=== PATIENT | male | born 1945 | race Caucasian/White ===

== ENCOUNTER 2018-07-30 12:30 | Inpatient (IN) | payer OTHER ==
[~2018-07-30] VITALS: Ht 167.6 cm; Wt 81.0 kg
[2018-07-30 13:33] LABS: APPEARANCE,URINE Clear (CLEAR); BILIRUBIN,URINE Negative (NEGATIVE); COLOR,URINE Yellow (YELLOW); GLUCOSE, URINE (UA) Negative (NEGATIVE); KETONES,URINE Negative (NEGATIVE); LEUKOCYTE ESTERASE ,URINE Negative (NEGATIVE); NITRATE,URINE Negative (NEGATIVE); OCCULT BLOOD,URINE Negative (NEGATIVE); PH,URINE 5.5 (5.0-8.0); PROTEIN,URINE Trace (NEGATIVE)
[2018-07-30 13:40] LABS: BASOPHILS % (AUTO) 0.4 % (0.0-5.0); EOSINOPHILS % (AUTO) 0.1 % (0.0-8.0); HEMATOCRIT 49.1 % (42-54); LYMPHOCYTES % (AUTO) 2.7 % (21.0-51.0); MEAN CORPUSCULAR HEMOGLOBIN 31.6 pg (27.0-33.0); MEAN CORPUSCULAR HGB CONC 33.8 g/dL (32.0-36.0); MEAN CORPUSCULAR VOLUME 93.6 fL (79-99); MONOCYTES % (AUTO) 4.4 % (3.0-13.0); NEUTROPHILS % (AUTO) 92.4 % (40.0-77.0); PLATELET COUNT (AUTO) 271 K/uL (130-400); RED BLOOD CELL COUNT(AUTO) 5.24 MIL/uL (4.50-6.20); RED CELL DISTRIBUTION WIDTH 13.8 % (11.0-15.5); WHITE BLOOD COUNT (AUTO) 22.8 K/uL (4.8-10.8)
[2018-07-30 13:46] LABS: BACTERIA,URINE Rare /HPF (None Seen); RBC,URINE 0-1 /HPF (0-1); SQUAMOUS EPITHELIAL CELL,UR Rare /HPF (0-2); WBC,URINE 0-1 /HPF (0-1)
[2018-07-30] MEDS ORDERED: LEVOFLOXACIN 500 MG/D5W 100 ML 100 ML ONE (13:53)
[2018-07-30 13:55] LABS: CARBON DIOXIDE 35 mmol/L (21-32); CHLORIDE 100 mmol/L (101-111); CREATININE 1.2 mg/dL (0.5-1.5); GLOMERULAR FILTR. RATE CALC 63 mL/min (>60); GLUCOSE,RANDOM 102 mg/dL (70-105); POTASSIUM 3.9 mmol/L (3.5-5.1); SODIUM SERUM 141 mmol/L (136-145); UREA NITROGEN, BLOOD 24 mg/dL (7-18)
[2018-07-30] MEDS ORDERED: ACETAMINOPHEN 325 MG TAB ONE (14:05)
[2018-07-30 14:09] LABS: ALANINE AMINOTRANSFERASE 30 U/L (12-78); ALBUMIN 3.7 g/dL (3.5-5.0); ASPARTATE AMINOTRANSFERASE 29 U/L (10-37); BILIRUBIN,TOTAL 0.7 mg/dL (0.2-1.0); CREATINE KINASE, TOTAL 65 U/L (21-232); MYOGLOBIN 95 ng/mL (10-92); TROPONIN I < 0.04 ng/mL (0.00-0.06)
[2018-07-30 14:12] LABS: ABG BASE EXCESS 5.5 mmol/L (-2.0-3.0); ABG HCO3 29.9 mmol/L (21.0-28.0); ABG OXYGEN SATURATION 97.6 % (95.0-99.0); ABG PCO2 43 mmHg (35-48)
[2018-07-30 14:18] LABS: INR 0.91 (0.85-1.15); PARTIAL THROMBOPLASTIN TIME 25.2 SEC (26.3-35.5); PROTHROMBIN TIME 9.6 SEC (9.6-11.6)
[2018-07-30] MEDS ORDERED: IPRATROPIUM/ALBUTEROL SULFATE 3 ML SOLUTION IH ONE (14:59)
[2018-07-30] MEDS ORDERED: CEFTRIAXONE SODIUM 1 GM ONE (15:29)
[2018-07-30] MEDS ORDERED: FUROSEMIDE 10 MG/ML 4ML VIAL ONE (15:29)
[2018-07-30] MEDS ORDERED: HYDRALAZINE HCL 20 MG/ML VIAL IV PRN (16:30)
[2018-07-30] MEDS ORDERED: ACETAMINOPHEN 325 MG TAB PO PRN ×2 (16:30)
[2018-07-30] MEDS: AZITHROMYCIN 500MG+NS 250ML 250 ML IV SCH (16:30)
[2018-07-30] MEDS ORDERED: MORPHINE SULFATE 2 MG/ML 1ML SYG IV PRN (16:30)
[2018-07-30] MEDS ORDERED: ONDANSETRON HCL 4 MG/2 ML VIAL IV PRN (16:30)
[2018-07-30] MEDS ORDERED: SODIUM CHLORIDE 3% FOR INHALATION 4 ML/AMP VIAL.NEB IH ONE (16:55)
[2018-07-30 17:22] LABS: HEMOGLOBIN A1C 5.9 % (4.0-6.0)
[2018-07-30 17:30] LABS: PHOSPHORUS 2.9 mg/dL (2.5-4.9); THYROID STIMULATING HORMONE 2.41 uIU/mL (0.36-3.74)
[2018-07-30] MEDS ORDERED: AZITHROMYCIN 500MG+NS 250ML 250 ML IV ONE (18:47)
[2018-07-30] MEDS: PREDNISONE 10 MG TABLET PO SCH (19:30)
[2018-07-30 19:35] LABS: CREATINE KINASE, TOTAL 72 U/L (21-232); MYOGLOBIN 74 ng/mL (10-92); TROPONIN I < 0.04 ng/mL (0.00-0.06)
[2018-07-30] MEDS ORDERED: FUROSEMIDE 10 MG/ML 2ML VIAL IV SCH (21:00)
[2018-07-30] MEDS: CEFTRIAXONE SODIUM 1 GM IV SCH (21:00)
[2018-07-30] MEDS: TEMAZEPAM 15 MG CAPSULE PO SCH (21:00)
[2018-07-30] MEDS: FAMOTIDINE/PF 20 MG/2 ML VIAL IV SCH (21:00)
[2018-07-30] MEDS ORDERED: PREDNISONE 20 MG TABLET ONE (22:32)
[2018-07-30] MEDS ORDERED: FAMOTIDINE/PF 20 MG/2 ML VIAL IV ONE (22:32)
[2018-07-30] MEDS ORDERED: TEMAZEPAM 15 MG CAPSULE ONE (22:56)
[2018-07-31 01:28] LABS: CREATINE KINASE, TOTAL 53 U/L (21-232); MYOGLOBIN 54 ng/mL (10-92); TROPONIN I < 0.04 ng/mL (0.00-0.06)
[2018-07-31 02:34] VITALS: BP 160/90
[2018-07-31] MEDS ORDERED: CLON0.2T PO (03:21)
[2018-07-31] MEDS ORDERED: FISH1CAP49 PO (03:21)
[2018-07-31] MEDS ORDERED: SIMV20TA6 PO (03:21)
[2018-07-31] MEDS ORDERED: FURO20TA4 PO (03:21)
[2018-07-31] MEDS ORDERED: TIOT18CA3 IH (03:21)
[2018-07-31] MEDS ORDERED: ALPR-409 PO (03:21)
[2018-07-31] MEDS ORDERED: OMEP20CA10 PO (03:21)
[2018-07-31] MEDS ORDERED: BUDE10.2 IH (03:21)
[2018-07-31] MEDS ORDERED: POLY15DR57 OP (03:21)
[2018-07-31] MEDS ORDERED: DILT180T12 PO (03:21)
[2018-07-31] MEDS ORDERED: DEXT1DRO OP (03:21)
[2018-07-31] MEDS ORDERED: ALBU8.5H8 IH (03:21)
[2018-07-31] MEDS ORDERED: ASPI-555 PO (03:21)
[2018-07-31] MEDS ORDERED: FLUT16H NASAL (03:21)
[2018-07-31] MEDS ORDERED: METO25TA6 PO (03:21)
[2018-07-31 04:30] VITALS: BP 127/70
[2018-07-31] MEDS: IPRATROPIUM/ALBUTEROL SULFATE 3 ML SOLUTION IH SCH ×2 (05:37→11:28)
[2018-07-31] MEDS ORDERED: ALPRAZOLAM 0.25 MG TABLET PO PRN (07:00)
[2018-07-31 07:31] VITALS: BP 135/76
[2018-07-31] MEDS: CEFTRIAXONE SODIUM 1 GM IV SCH ×2 (08:06→21:06)
[2018-07-31] MEDS: DILTIAZEM HCL 180 MG CAP.SR.24H PO SCH (08:08)
[2018-07-31] MEDS: FISH OIL 1000 MG/CAP PO SCH (08:08)
[2018-07-31] MEDS: FUROSEMIDE 20 MG TABLET PO SCH ×2 (08:10→21:08)
[2018-07-31] MEDS: PREDNISONE 10 MG TABLET PO SCH (08:10)
[2018-07-31] MEDS: FAMOTIDINE/PF 20 MG/2 ML VIAL IV SCH ×2 (08:10→21:07)
[2018-07-31] MEDS: METOPROLOL TARTRATE 25 MG TAB PO SCH ×2 (08:10→21:08)
[2018-07-31] MEDS: PANTOPRAZOLE SODIUM 40 MG TABLET.DR PO SCH (08:15)
[2018-07-31] MEDS: ENOXAPARIN SODIUM 80 MG/0.8 ML SQ SCH ×2 (08:15→21:07)
[2018-07-31 08:53] LABS: CREATINE KINASE, TOTAL 43 U/L (21-232); MYOGLOBIN 72 ng/mL (10-92); TROPONIN I < 0.04 ng/mL (0.00-0.06)
[2018-07-31] MEDS: ARTIFICAL TEARS SOL 15 ML OP SCH ×4 (09:00→21:00)
[2018-07-31] MEDS ORDERED: POLYVINYL ALCOHOL OP SCH (09:00)
[2018-07-31] MEDS ORDERED: SUB TO IPRATROPIUM 0.5MG/2.5ML PER P&T IH SCH (09:00)
[2018-07-31] MEDS ORDERED: ENOXAPARIN SODIUM 40 MG/0.4 ML SYRINGE SQ SCH (09:00)
[2018-07-31] MEDS ORDERED: SUB PER P&T FOR ASTHMA OR COPD RECOMMENDATION IH SCH (09:00)
[2018-07-31] MEDS: CLONIDINE HCL 0.2 MG TABLET PO SCH ×2 (09:00→21:08)
[2018-07-31] MEDS ORDERED: METOPROLOL TARTRATE 1 MG/ML 5ML VIAL IV PRN (09:30)
--- NOTE | 2018-07-31 09:50 | NUR ---
Patient Afib in 80's and converted to SR 80
[2018-07-31 10:59] VITALS: BP 139/74
[2018-07-31] MEDS: FLUTICASONE PROPIONATE 50MCG/SPRAY 16 GM BOTTLE EN SCH (12:40)
--- NOTE | 2018-07-31 12:50 | NUR ---
Patient Rhythm SR 80's
[2018-07-31 16:08] VITALS: BP 152/81
--- NOTE | 2018-07-31 16:25 | NUR ---
DC Plan Met with patient and at bedside. Patient had questions regarding to cardiology work-up. Informed patient that [place] does not need special approval for work up. Explained admission and UM/UR process. Verbalized understanding. Patient states lives w/ in motor home. Denies any difficulty w/ ADLs. has nebulizer, large O2 concentrator, and portable unit. feels safe returning to home w/ same setting. CD Addendum: 08/01/18 at 0835 by BETHANY PASCAL CM Amended: Links added.
[2018-07-31] MEDS: AZITHROMYCIN 500MG+NS 250ML 250 ML IV SCH (16:33)
--- NOTE | 2018-07-31 18:00 | NUR ---
Patient converted back to AFib 102-130's. Checked on patient and patient standing next to bed. Redirected patient back to bed.
[2018-07-31] MEDS ORDERED: FUROSEMIDE 10 MG/ML 2ML VIAL IV ONE (18:15)
[2018-07-31] MEDS: IPRATROPIUM 0.5 MG/2.5 ML INH IH SCH (19:24)
[2018-07-31 19:45] VITALS: BP 143/76
[2018-07-31] MEDS: BUDESONIDE 0.5 MG/2 ML INH IH SCH (19:51)
--- NOTE | 2018-07-31 20:00 | NUR ---
PM assessment. Bedside report received from TICO Hawthorne. Plan of care discussed with patient. Patient remains Sinus tachy in the 100's patient current denies any problems resting comfortably in room. Physical assessment -see patients chart. will continue to monitor.
[2018-07-31] MEDS: TEMAZEPAM 15 MG CAPSULE PO SCH (21:07)
[2018-07-31] MEDS: SIMVASTATIN 20 MG TABLET PO SCH (21:07)
[2018-07-31] MEDS: ASPIRIN 81 MG EC TAB PO SCH (21:07)
[2018-08-01] VITALS (7 sets, daily range): BP systolic 96–154; BP diastolic 53–94
[2018-08-01] MEDS: IPRATROPIUM 0.5 MG/2.5 ML INH IH SCH ×5 (00:17→23:58)
[2018-08-01] MEDS: VANCOMYCIN 1GM+NS 250ML 250 ML IV SCH (00:57)
[2018-08-01] MEDS: CEFEPIME HCL 1 GM VIAL IVP SCH ×2 (00:59→13:17)
[2018-08-01 03:52] LABS: HEMATOCRIT 40.5 % (42-54); MEAN CORPUSCULAR HEMOGLOBIN 31.2 pg (27.0-33.0); MEAN CORPUSCULAR HGB CONC 33.7 g/dL (32.0-36.0); MEAN CORPUSCULAR VOLUME 92.8 fL (79-99); PLATELET COUNT (AUTO) 203 K/uL (130-400); RED BLOOD CELL COUNT(AUTO) 4.37 MIL/uL (4.50-6.20); RED CELL DISTRIBUTION WIDTH 13.9 % (11.0-15.5); WHITE BLOOD COUNT (AUTO) 16.1 K/uL (4.8-10.8)
[2018-08-01 04:06] LABS: CREATININE 1.4 mg/dL (0.5-1.5); MAGNESIUM 2.1 mg/dL (1.80-2.40); PHOSPHORUS 3.9 mg/dL (2.5-4.9); POTASSIUM 3.5 mmol/L (3.5-5.1)
[2018-08-01 04:27] LABS: B-TYPE NATRIURETIC PEPTIDE 148 pg/mL (0-100)
[2018-08-01] MEDS: BUDESONIDE 0.5 MG/2 ML INH IH SCH ×2 (06:09→18:49)
[2018-08-01] MEDS: PANTOPRAZOLE SODIUM 40 MG TABLET.DR PO SCH (06:46)
[2018-08-01] MEDS: ARTIFICAL TEARS SOL 15 ML OP SCH ×3 (09:00→17:00)
[2018-08-01] MEDS: FLUTICASONE PROPIONATE 50MCG/SPRAY 16 GM BOTTLE EN SCH (09:57)
[2018-08-01] MEDS: ENOXAPARIN SODIUM 80 MG/0.8 ML SQ SCH ×2 (09:57→20:43)
[2018-08-01] MEDS: FISH OIL 1000 MG/CAP PO SCH (09:58)
[2018-08-01] MEDS: FUROSEMIDE 20 MG TABLET PO SCH ×2 (09:58→20:44)
[2018-08-01] MEDS: PREDNISONE 10 MG TABLET PO SCH (09:58)
[2018-08-01] MEDS: METOPROLOL TARTRATE 25 MG TAB PO SCH ×2 (09:58→20:45)
[2018-08-01] MEDS: DILTIAZEM HCL 180 MG CAP.SR.24H PO SCH (09:58)
[2018-08-01] MEDS: CLONIDINE HCL 0.2 MG TABLET PO SCH ×2 (09:59→20:46)
[2018-08-01] MEDS: FAMOTIDINE/PF 20 MG/2 ML VIAL IV SCH ×2 (09:59→20:44)
[2018-08-01] MEDS: AZITHROMYCIN 500MG+NS 250ML 250 ML IV SCH (18:15)
[2018-08-01] MEDS: SIMVASTATIN 20 MG TABLET PO SCH (20:44)
[2018-08-01] MEDS: ASPIRIN 81 MG EC TAB PO SCH (20:44)
[2018-08-01] MEDS: TEMAZEPAM 15 MG CAPSULE PO SCH (22:36)
[2018-08-02] MEDS: VANCOMYCIN 1GM+NS 250ML 250 ML IV SCH (02:18)
[2018-08-02] MEDS: CEFEPIME HCL 1 GM VIAL IVP SCH ×2 (02:18→12:48)
[2018-08-02 03:38] VITALS: BP 134/78
[2018-08-02 03:59] LABS: HEMATOCRIT 41.4 % (42-54); MEAN CORPUSCULAR HEMOGLOBIN 30.6 pg (27.0-33.0); MEAN CORPUSCULAR HGB CONC 32.9 g/dL (32.0-36.0); PLATELET COUNT (AUTO) 192 K/uL (130-400); RED BLOOD CELL COUNT(AUTO) 4.45 MIL/uL (4.50-6.20); RED CELL DISTRIBUTION WIDTH 13.6 % (11.0-15.5); WHITE BLOOD COUNT (AUTO) 14.2 K/uL (4.8-10.8)
[2018-08-02] MEDS: PANTOPRAZOLE SODIUM 40 MG TABLET.DR PO SCH (05:39)
[2018-08-02] MEDS: IPRATROPIUM 0.5 MG/2.5 ML INH IH SCH ×4 (06:22→23:28)
[2018-08-02] MEDS: BUDESONIDE 0.5 MG/2 ML INH IH SCH ×2 (06:35→19:29)
[2018-08-02 07:38] VITALS: BP 152/78
--- NOTE | 2018-08-02 08:05 | NUR ---
Report given to Jdaiel Leung Patient in stable condition.
[2018-08-02] MEDS: PREDNISONE 10 MG TABLET PO SCH (09:40)
[2018-08-02] MEDS: FISH OIL 1000 MG/CAP PO SCH (09:40)
[2018-08-02] MEDS: FAMOTIDINE/PF 20 MG/2 ML VIAL IV SCH ×2 (09:40→20:38)
[2018-08-02] MEDS: METOPROLOL TARTRATE 25 MG TAB PO SCH ×2 (09:40→20:38)
[2018-08-02] MEDS: DILTIAZEM HCL 180 MG CAP.SR.24H PO SCH (09:41)
[2018-08-02] MEDS: FUROSEMIDE 20 MG TABLET PO SCH ×2 (09:42→20:36)
[2018-08-02] MEDS: CLONIDINE HCL 0.2 MG TABLET PO SCH ×2 (09:42→20:38)
[2018-08-02] MEDS: ENOXAPARIN SODIUM 80 MG/0.8 ML SQ SCH ×2 (09:43→20:39)
[2018-08-02] MEDS: ARTIFICAL TEARS SOL 15 ML OP SCH ×4 (09:50→20:41)
[2018-08-02] MEDS: FLUTICASONE PROPIONATE 50MCG/SPRAY 16 GM BOTTLE EN SCH (09:50)
[2018-08-02 11:41] VITALS: BP 141/77
[2018-08-02] MEDS: METHYLPREDNISOLONE SOD SUCC 40MG/ML 1ML IVP SCH ×2 (14:09→22:29)
[2018-08-02 16:25] VITALS: BP 136/95
[2018-08-02] MEDS: AZITHROMYCIN 500MG+NS 250ML 250 ML IV SCH (17:18)
[2018-08-02 20:14] VITALS: BP 147/82
[2018-08-02] MEDS: ASPIRIN 81 MG EC TAB PO SCH (20:35)
[2018-08-02] MEDS: TEMAZEPAM 15 MG CAPSULE PO SCH (20:37)
[2018-08-02] MEDS: SIMVASTATIN 20 MG TABLET PO SCH (20:38)
[2018-08-02 23:46] VITALS: BP 123/71
[2018-08-03] MEDS: VANCOMYCIN 1GM+NS 250ML 250 ML IV SCH ×2 (01:05→23:09)
[2018-08-03] MEDS: CEFEPIME HCL 1 GM VIAL IVP SCH ×3 (01:05→23:09)
[2018-08-03 04:00] VITALS: BP 153/85
[2018-08-03 04:04] LABS: BASOPHILS % (AUTO) 0.1 % (0.0-5.0); HEMATOCRIT 41.1 % (42-54); LYMPHOCYTES % (AUTO) 5.6 % (21.0-51.0); MEAN CORPUSCULAR HEMOGLOBIN 31.5 pg (27.0-33.0); MEAN CORPUSCULAR VOLUME 92.8 fL (79-99); MONOCYTES % (AUTO) 2.1 % (3.0-13.0); NEUTROPHILS % (AUTO) 92.2 % (40.0-77.0); PLATELET COUNT (AUTO) 210 K/uL (130-400); RED BLOOD CELL COUNT(AUTO) 4.43 MIL/uL (4.50-6.20); RED CELL DISTRIBUTION WIDTH 13.6 % (11.0-15.5); WHITE BLOOD COUNT (AUTO) 10.2 K/uL (4.8-10.8)
[2018-08-03 04:05] LABS: CREATININE 1.1 mg/dL (0.5-1.5)
[2018-08-03] MEDS: IPRATROPIUM 0.5 MG/2.5 ML INH IH SCH ×4 (06:25→23:42)
[2018-08-03] MEDS: BUDESONIDE 0.5 MG/2 ML INH IH SCH ×2 (06:25→17:06)
[2018-08-03] MEDS: PANTOPRAZOLE SODIUM 40 MG TABLET.DR PO SCH (06:58)
[2018-08-03] MEDS: METHYLPREDNISOLONE SOD SUCC 40MG/ML 1ML IVP SCH ×3 (06:58→23:08)
[2018-08-03 07:41] VITALS: BP 156/99
[2018-08-03] MEDS ORDERED: LACTULOSE 20 GM/30 ML UDCUP PO PRN (08:00)
[2018-08-03] MEDS ORDERED: POLYETHYLENE GLYCOL 3350 17 GM POWD.PACK ONE (08:27)
[2018-08-03] MEDS: FISH OIL 1000 MG/CAP PO SCH (08:43)
[2018-08-03] MEDS: FUROSEMIDE 20 MG TABLET PO SCH ×2 (08:43→21:37)
[2018-08-03] MEDS: DILTIAZEM HCL 180 MG CAP.SR.24H PO SCH (08:43)
[2018-08-03] MEDS: METOPROLOL TARTRATE 25 MG TAB PO SCH ×2 (08:44→21:36)
[2018-08-03] MEDS: FAMOTIDINE/PF 20 MG/2 ML VIAL IV SCH ×2 (08:44→21:37)
[2018-08-03] MEDS: CLONIDINE HCL 0.2 MG TABLET PO SCH ×2 (08:44→21:37)
[2018-08-03] MEDS: POLYETHYLENE GLYCOL 3350 17 GM POWD.PACK PO SCH (08:45)
[2018-08-03] MEDS: ENOXAPARIN SODIUM 80 MG/0.8 ML SQ SCH ×2 (08:45→18:05)
[2018-08-03] MEDS: FLUTICASONE PROPIONATE 50MCG/SPRAY 16 GM BOTTLE EN SCH (08:53)
[2018-08-03] MEDS: ARTIFICAL TEARS SOL 15 ML OP SCH ×4 (08:54→21:38)
[2018-08-03 10:57] VITALS: BP 148/75
[2018-08-03 16:15] VITALS: BP 140/85
[2018-08-03] MEDS: AZITHROMYCIN 500MG+NS 250ML 250 ML IV SCH (17:13)
[2018-08-03 19:57] VITALS: BP 155/105
[2018-08-03] MEDS: ASPIRIN 81 MG EC TAB PO SCH (21:36)
[2018-08-03] MEDS: SIMVASTATIN 20 MG TABLET PO SCH (21:36)
[2018-08-03] MEDS: TEMAZEPAM 15 MG CAPSULE PO SCH (23:09)
[2018-08-03 23:28] VITALS: BP 147/92
[2018-08-04 03:38] VITALS: BP 146/82
[2018-08-04] MEDS: METHYLPREDNISOLONE SOD SUCC 40MG/ML 1ML IVP SCH (06:04)
[2018-08-04] MEDS: BUDESONIDE 0.5 MG/2 ML INH IH SCH (06:32)
[2018-08-04] MEDS: IPRATROPIUM 0.5 MG/2.5 ML INH IH SCH (06:32)
[2018-08-04] MEDS: ENOXAPARIN SODIUM 80 MG/0.8 ML SQ SCH (08:00)
[2018-08-04 08:09] VITALS: BP 159/85
[2018-08-04] MEDS: FAMOTIDINE/PF 20 MG/2 ML VIAL IV SCH (08:39)
[2018-08-04] MEDS: PANTOPRAZOLE SODIUM 40 MG TABLET.DR PO SCH (08:40)
[2018-08-04] MEDS: FUROSEMIDE 20 MG TABLET PO SCH (08:40)
[2018-08-04] MEDS: FISH OIL 1000 MG/CAP PO SCH (08:40)
[2018-08-04] MEDS: METOPROLOL TARTRATE 25 MG TAB PO SCH (08:40)
[2018-08-04] MEDS: DILTIAZEM HCL 180 MG CAP.SR.24H PO SCH (08:40)
[2018-08-04 08:41] VITALS: BP 159/74
[2018-08-04] MEDS: CLONIDINE HCL 0.2 MG TABLET PO SCH (08:41)
[2018-08-04] MEDS: ARTIFICAL TEARS SOL 15 ML OP SCH (08:49)
[2018-08-04] MEDS: POLYETHYLENE GLYCOL 3350 17 GM POWD.PACK PO SCH (08:49)
[2018-08-04] MEDS: FLUTICASONE PROPIONATE 50MCG/SPRAY 16 GM BOTTLE EN SCH (08:49)
[2018-08-04] MEDS ORDERED: AZIT500T4 PO ×2 (10:26→10:28)
[2018-08-04] MEDS ORDERED: PRED20TA3 PO (10:27)
== END 2018-08-04 10:56 | disposition home or self-care (01) | DRG 871 ==
LOC: EDH 12:30 → EDHIP 16:28 → 2AH 07-31 02:26
PROVIDERS: ADMIT Internal Medicine; ATTEND Internal Medicine
DX: A41.9 Sepsis, unspecified organism (principal); J18.9 Pneumonia, unspecified organism; I50.23 Acute on chronic systolic (congestive) heart failure; J96.21 Acute and chronic respiratory failure with hypoxia; D68.59 Other primary thrombophilia; N17.9 Acute kidney failure, unspecified; B39.9 Histoplasmosis, unspecified; D89.9 Disorder involving the immune mechanism, unspecified; E78.5 Hyperlipidemia, unspecified; I11.0 Hypertensive heart disease with heart failure; I48.0 Paroxysmal atrial fibrillation; I48.2 Chronic atrial fibrillation; J98.01 Acute bronchospasm; K21.9 Gastro-esophageal reflux disease without esophagitis; Z99.81 Dependence on supplemental oxygen; Z90.2 Acquired absence of lung [part of]; Z93.0 Tracheostomy status
CPT/HCPCS: 36415; 36600; 71045; 71250; 80048; 80053; 81001; 82550; 82803; 83036; 83605; 83735; 83874; 83880; 84100; 84443; 84484; 85025; 85027; 85610; 85730; 87040; 87071; 87088; 87205; 87486; 87581; 87633; 87798; 87804; 93005; 93306; 94640; 94664; 99291; A4218; G0378; J0456; J0692; J0696; J1650; J1940; J1956; J2920; J3370; J3490; J7512